=== PATIENT | female | born 1990 | race Caucasian/White ===

== ENCOUNTER 2020-02-27 14:47 | Emergency (ER) | payer OTHER ==
[2020-02-27 14:57] VITALS: TEMP 98.4
--- NOTE | 2020-02-27 15:19 | ED ---
Female Urogenital HPI - General Chief complaint: Vaginal Bleeding Stated complaint: 5 Wks Preg,Bleeding Time Seen by Provider: 02/27/20 15:00 Source: patient Mode of arrival: ambulatory Limitations: no limitations - History of Present Illness Initial comments: Patient is a 29-year-old female presenting to emergency Department with complaints of vaginal bleeding that she noticed today. Patient states she is approximately 5 weeks . She states she found out from a test at an urgent care last week. Shunt is . She does not have an OUTSIDE SALES at this time. She states she noticed some light spotting when she went to the restroom this morning, she took a nap and then when she woke up she noticed some more bleeding. She states she feels like she is passing small little clots. Her bleeding is not active, mostly when she wipes to use the restroom. She admits to some very mild intermittent right lower quadrant pain. No pain at this time however. She denies any urinary complaints. She denies any fever, chills, nausea or vomiting. She has no pertinent past medical history. She is no further complaints at this time. Upon arrival to the ER, her vitals are stable. - Related Data Allergies Allergy/AdvReac Type Severity Reaction Status Date / Time hydromorphone [From Dilaudid] Allergy Nausea & Verified 02/27/20 14:53 Vomiting Review of Systems ROS Statement: Those systems with pertinent positive or pertinent negative responses have been documented in the HPI. ROS Other: All systems not noted in ROS Statement are negative. Past Medical History Past Medical History: No Reported History History of Any Multi-Drug Resistant Organisms: None Reported Past Surgical History: No Surgical Hx Reported, Joint Replacement Additional Past Surgical History / Comment(s): B knee Past Psychological History: No Psychological Hx Reported Smoking Status: Current every day smoker Past Alcohol Use History: None Reported Past Drug Use History: Marijuana General Exam - General Exam Comments Initial Comments: GENERAL: Patient is well-developed and well-nourished. Patient is nontoxic and in no acute distress. HEAD: Atraumatic, normocephalic. EYES: Pupils equal round and reactive to light, extraocular movements intact, sclera anicteric, conjunctiva are normal. Eyelids were unremarkable. ENT: TMs normal, nares patent, oropharynx clear without exudates. Moist mucous membranes. NECK: Normal range of motion, supple without lymphadenopathy or JVD. LUNGS: Unlabored respirations. Breath sounds clear to auscultation bilaterally and equal. No wheezes rales or rhonchi. HEART: Regular rate and rhythm without murmurs, rubs or gallops. ABDOMEN: Soft, nontender, normoactive bowel sounds. No guarding, no rebound. No masses appreciated. MUSCULOSKELETAL: Normal extremities with adequate strength and normal range of motion, no pitting or edema. No clubbing or cyanosis. NEUROLOGICAL: Patient is alert and oriented x 3. Motor and sensory are also intact. Cranial nerves II through XII grossly intact. Symmetrical smile. Normal speech, normal gait. PSYCH: Normal mood, normal affect. SKIN: Warm, Dry, normal turgor, no rashes or lesions noted. Limitations: no limitations External exam: Present: normal external exam Speculum exam: Present: vaginal bleeding (mild vaginal bleeding, no active). Absent: vaginal discharge, foreign body By manual exam: Present: normal by manual exam Course Vital Signs 02/27/20 02/27/20 14:54 17:35 Temperature 98.4 F Pulse Rate 77 71 Respiratory 18 16 Rate Blood Pressure 137/92 111/74 O2 Sat by Pulse 100 97 Oximetry Medical Decision Making - Medical Decision Making Patient is a 29-year-old female here currently 5 weeks presenting with some mild vaginal bleeding and some mild suprapubic pain. Her vital signs are stable. Patient is , no OUTSIDE SALES as of yet. Patient's lab work is unremarkable, hCG Damian is 8358, urine shows no evidence of infection. Ultrasound is suspicious for an early gestational sac however no pole is identified. Probable too early to visualize IUP, spontaneous and ectopic is not included. Patient's blood type is O+. Patient is stable for discharge. I recommended having a beta hCG levels rechecked in 48 hours, I will give her OUTSIDE SALES follow-up. Return parameters were discussed with the patient she verbalized understanding. - Lab Data Result diagrams: 02/27/20 15:19 02/27/20 15:19 Lab Results 02/27/20 02/27/20 02/27/20 Range/Units 15:19 15:19 15:25 WBC 9.9 (3.8-10.6) k/uL RBC 4.80 (3.80-5.40) m/uL Hgb 14.3 (11.4-16.0) gm/dL Hct 44.5 (34.0-46.0) % MCV 92.7 (80.0-100.0) fL MCH 29.7 (25.0-35.0) pg MCHC 32.0 (31.0-37.0) g/dL RDW 12.7 (11.5-15.5) % Plt Count 272 (150-450) k/uL Neutrophils % 67 % Lymphocytes % 22 % Monocytes % 6 % Eosinophils % 2 % Basophils % 1 % Neutrophils # 6.7 (1.3-7.7) k/uL Lymphocytes # 2.2 (1.0-4.8) k/uL Monocytes # 0.6 (0-1.0) k/uL Eosinophils # 0.2 (0-0.7) k/uL Basophils # 0.1 (0-0.2) k/uL Sodium 137 (137-145) mmol/L Potassium 3.8 (3.5-5.1) mmol/L Chloride 102 (98-107) mmol/L Carbon Dioxide 24 (22-30) mmol/L Anion Gap 11 mmol/L BUN 8 (7-17) mg/dL Creatinine 0.59 (0.52-1.04) mg/dL Est GFR (CKD-EPI)AfAm >90 (>60 ml/min/1.73 sqM) Est GFR (CKD-EPI)NonAf >90 (>60 ml/min/1.73 sqM) Glucose 107 H (74-99) mg/dL Calcium 9.7 (8.4-10.2) mg/dL HCG, Quant 8358.6 mIU/mL Urine Color Urine Appearance (Clear) Urine pH (5.0-8.0) Ur Specific Rhodes (1.001-1.035) Urine Protein (Negative) Urine Glucose (UA) (Negative) Urine Ketones (Negative) Urine Blood (Negative) Urine Nitrite (Negative) Urine Bilirubin (Negative) Urine Urobilinogen (<2.0) mg/dL Ur Leukocyte Esterase (Negative) Blood Type O Positive Blood Type Recheck No Previous Record Bld Type Recheck Status ABR ONLY 02/27/20 Range/Units 15:29 WBC (3.8-10.6) k/uL RBC (3.80-5.40) m/uL Hgb (11.4-16.0) gm/dL Hct (34.0-46.0) % MCV (80.0-100.0) fL MCH (25.0-35.0) pg MCHC (31.0-37.0) g/dL RDW (11.5-15.5) % Plt Count (150-450) k/uL Neutrophils % % Lymphocytes % % Monocytes % % Eosinophils % % Basophils % % Neutrophils # (1.3-7.7) k/uL Lymphocytes # (1.0-4.8) k/uL Monocytes # (0-1.0) k/uL Eosinophils # (0-0.7) k/uL Basophils # (0-0.2) k/uL Sodium (137-145) mmol/L Potassium (3.5-5.1) mmol/L Chloride (98-107) mmol/L Carbon Dioxide (22-30) mmol/L Anion Gap mmol/L BUN (7-17) mg/dL Creatinine (0.52-1.04) mg/dL Est GFR (CKD-EPI)AfAm (>60 ml/min/1.73 sqM) Est GFR (CKD-EPI)NonAf (>60 ml/min/1.73 sqM) Glucose (74-99) mg/dL Calcium (8.4-10.2) mg/dL HCG, Quant mIU/mL Urine Color Colorless Urine Appearance Clear (Clear) Urine pH 5.5 (5.0-8.0) Ur Specific Rhodes 1.003 (1.001-1.035) Urine Protein Negative (Negative) Urine Glucose (UA) Negative (Negative) Urine Ketones Negative (Negative) Urine Blood Negative (Negative) Urine Nitrite Negative (Negative) Urine Bilirubin Negative (Negative) Urine Urobilinogen <2.0 (<2.0) mg/dL Ur Leukocyte Esterase Negative (Negative) Blood Type Blood Type Recheck Bld Type Recheck Status Disposition Clinical Impression: Threatened , Vaginal bleeding Disposition: HOME SELF-CARE Condition: Stable Instructions (If sedation given, give patient instructions): Threatened Miscarriage (ED) Additional Instructions: Please return to the Emergency Department if symptoms worsen or any other concerns. Have beta rechecked in 48 hours as discussed. Follow up with OUTSIDE SALES. Is patient prescribed a controlled substance at d/c from ED?: No Referrals: None,Stated [Primary Care Provider] - 1-2 days Leonela Lui MD [STAFF PHYSICIAN] - 1-2 days
[2020-02-27 15:40] LABS: Basophils # (A) 0.1 k/uL (0-0.2); Basophils % (A) 1 %; Eosinophils # (A) 0.2 k/uL (0-0.7); Eosinophils % (A) 2 %; HCT 44.5 % (34.0-46.0); HGB 14.3 gm/dL (11.4-16.0); Lymphocytes # (A) 2.2 k/uL (1.0-4.8); Lymphocytes % (A) 22 %; MCH 29.7 pg (25.0-35.0); MCV 92.7 fL (80.0-100.0); Mean Platelet Volume 7.5; Monocytes # (A) 0.6 k/uL (0-1.0); Monocytes % (A) 6 %; Neutrophils # (A) 6.7 k/uL (1.3-7.7); Neutrophils % (A) 67 %; Platelet Count 272 k/uL (150-450); RDW 12.7 % (11.5-15.5); WBC 9.9 k/uL (3.8-10.6)
[2020-02-27 15:41] LABS: Appearance,Urine Clear (Clear); Bilirubin,Urine Negative (Negative); Blood,Urine Negative (Negative); Color,Urine Colorless; Glucose,Urine (UA) Negative (Negative); Ketones,Urine Negative (Negative); Leukocyte Esterase,Urine Negative (Negative); Nitrite,Urine Negative (Negative); PH, Urine 5.5 (5.0-8.0); Protein,Urine Negative (Negative); Specific Gravity,Urine 1.003 (1.001-1.035); Urobilinogen,Urine <2.0 mg/dL (<2.0)
[2020-02-27 16:08] LABS: African American GFR (CKD) >90 (>60 ml/min/1.73 sqM); Anion Gap 11 mmol/L; Blood Urea Nitrogen 8 mg/dL (7-17); Calcium 9.7 mg/dL (8.4-10.2); Carbon Dioxide 24 mmol/L (22-30); Chloride 102 mmol/L (98-107); Glucose 107 mg/dL (74-99); Non-African American GFR(CKD) >90 (>60 ml/min/1.73 sqM); Potassium 3.8 mmol/L (3.5-5.1); Sodium 137 mmol/L (137-145)
[2020-02-27 16:25] LABS: HCG,Quantitative Serum 8358.6 mIU/mL
--- NOTE | 2020-02-27 16:46 | US ---
EXAMINATION TYPE: Transabdominal DATE OF EXAM: 02/27/2020 4:20 PM COMPARISON: NONE CLINICAL HISTORY: bleeding, pain, 5wks . EXAM PERFORMED: Transvaginal (TV) and Transabdominal (TA) EXAM MEASUREMENTS: GESTATIONAL AGE / DATING Physician Established: Not yet established Dates by LMP: LMP unknown Dates by First Scan: No previous this is first scan Dates by Current Scan for: (5 weeks/1 days) - by gestational sac only EDC: 10/28/2020 MATERNAL ANATOMY Uterus: 8.3 x 4.1 x 5.1 cm Right Ovary: 2.7 x 1.8 x 2.1 cm Left Ovary: 1.8 x 1.1 x 0.9 cm Post CDS / Adnexa: Tiny amount of free fluid visualized Presence of free fluid: See above Presence of corpus luteal cyst: Yes, right ovary measuring 1.9 x 1.3 x 1.8 cm Presence of subchorionic bleed: Yes, measuring 2.6 x 0.8 x 2.2 cm GESTATION / SURVEY MSD: 1.0 cm (5 weeks/1 days) Yolk Sac (normal less than 6mm): 3 mm IUP: No pole visualized on today's exam Date of LMP: Unknown Beta HcG (if available): Not available at this time Heterogeneous anteverted uterus. Endometrium is thickened up to 16 mm. There is oval 1.3 x 0.9 x 0.9 cm anechoic area with peripheral hyperechoic rim 3 mm anechoic lesion suspicious for early gestationa l sac and yolk sac. There is small to moderate size nonsimple fluid collection measuring 2.6 x 0.8 x 2.2 cm anterior or just adjacent superficial to this. No pole identified. Tiny amount of free f luid in pelvic cul-de-sac near the end of study. Both ovaries identified with scattered peripheral follicles. No suspicious extraovarian adnexal mass. Right ovary has thickened 1.8 cm rim hypervascular lesions suspicious for corpus luteal cyst. IMPRESSION: Probable too early to visualize intrauterine but spontaneous is in dif ferential and ectopic is not excluded. Serial beta hCG and ultrasound follow-up is advised.
[2020-02-27 17:36] VITALS: BP 111/74; PULSE 71; RESP 16
== END 2020-02-27 17:30 | disposition home or self-care (01) ==
LOC: EC 14:47
DX: O20.0 Threatened abortion (principal); F17.200 Nicotine dependence, unspecified, uncomplicated; Z3A.01 Less than 8 weeks gestation of pregnancy; Z88.5 Allergy status to narcotic agent; Z96.653 Presence of artificial knee joint, bilateral
CPT/HCPCS: 36415; 76801; 76817; 80048; 81003; 84702; 85025; 86900; 86901; 99284

== ENCOUNTER 2020-02-28 11:52 | Emergency (ER) | payer OTHER ==
[2020-02-28 12:04] VITALS: RESP 16
[2020-02-28 13:26] LABS: Basophils # (A) 0.1 k/uL (0-0.2); Basophils % (A) 1 %; Eosinophils # (A) 0.2 k/uL (0-0.7); Eosinophils % (A) 2 %; HCT 43.5 % (34.0-46.0); Lymphocytes # (A) 2.1 k/uL (1.0-4.8); Lymphocytes % (A) 21 %; MCH 29.3 pg (25.0-35.0); MCHC 32.2 g/dL (31.0-37.0); MCV 90.9 fL (80.0-100.0); Mean Platelet Volume 7.6; Monocytes # (A) 0.5 k/uL (0-1.0); Monocytes % (A) 5 %; Neutrophils # (A) 7.1 k/uL (1.3-7.7); Neutrophils % (A) 70 %; Platelet Count 294 k/uL (150-450); RBC 4.78 m/uL (3.80-5.40); RDW 12.6 % (11.5-15.5); WBC 10.2 k/uL (3.8-10.6)
[2020-02-28 13:44] LABS: ALT 10 U/L (4-34); AST 25 U/L (14-36); African American GFR (CKD) >90 (>60 ml/min/1.73 sqM); Albumin 4.6 g/dL (3.5-5.0); Alkaline Phosphatase 47 U/L (38-126); Anion Gap 7 mmol/L; Blood Urea Nitrogen 6 mg/dL (7-17); Calcium 9.4 mg/dL (8.4-10.2); Carbon Dioxide 24 mmol/L (22-30); Chloride 106 mmol/L (98-107); Glucose 99 mg/dL (74-99); Non-African American GFR(CKD) >90 (>60 ml/min/1.73 sqM); Potassium 4.2 mmol/L (3.5-5.1); Sodium 137 mmol/L (137-145); Total Bilirubin 0.4 mg/dL (0.2-1.3); Total Protein 7.3 g/dL (6.3-8.2)
[2020-02-28] MEDS ORDERED: ACETAMINOPHEN TAB 325 MG TAB PO STA (13:54)
[2020-02-28 13:58] LABS: HCG,Quantitative Serum 4295.3 mIU/mL
--- NOTE | 2020-02-28 14:09 | ED ---
Female Urogenital HPI - General Chief complaint: Vaginal Bleeding Stated complaint: 5 Wks Preg, Bleeding Time Seen by Provider: 02/28/20 12:08 Source: patient Mode of arrival: ambulatory Limitations: no limitations - History of Present Illness Initial comments: 29-year-old female presented for possible miscarriage. Patient states she was here yesterday and evaluated she states she is to see OB and have a repeat hCG done in 2 days. Patient states she was not sure of cramping was normal she states she feels like she is having a. She is midline crampy abdominal pain she denies any unilateral abdominal pain. She states she is moderate bleeding with some small clots. Patient denies any lightheadedness dizziness or presyncope. Patient denies any vomiting nausea or additional complaints she denies severe pain she states is tolerable. Remaining review of systems negative upon arrival patient appears well nontoxic distress. Blood pressure and heart rate within acceptable limits - Related Data Home Medications Medication Instructions Recorded Confirmed No Known Home Medications 02/28/20 02/28/20 Allergies Allergy/AdvReac Type Severity Reaction Status Date / Time hydromorphone [From Dilaudid] AdvReac Nausea & Verified 02/28/20 14:06 Vomiting Review of Systems ROS Statement: Those systems with pertinent positive or pertinent negative responses have been documented in the HPI. ROS Other: All systems not noted in ROS Statement are negative. Past Medical History Past Medical History: No Reported History History of Any Multi-Drug Resistant Organisms: None Reported Past Surgical History: No Surgical Hx Reported, Joint Replacement Additional Past Surgical History / Comment(s): B knee Past Psychological History: No Psychological Hx Reported Smoking Status: Former smoker Past Alcohol Use History: None Reported Past Drug Use History: Marijuana General Exam - General Exam Comments Initial Comments: General: The patient is awake and alert, in no distress, and does not appear acutely ill. Eye: +3 mm pupils are equal, round and reactive to light, extra-ocular movements are intact. No nystagmus. There is normal conjunctiva bilaterally. No signs of icterus. Ears, nose, mouth and throat: There are moist mucous membranes and no oral lesions. Neck: The neck is supple, there is no tenderness or JVD. Cardiovascular: There is a regular rate and rhythm. No murmur, rub or gallop is appreciated. Respiratory: Lungs are clear to auscultation, respirations are non-labored, breath sounds are equal. No wheezes, stridor, rales, or rhonchi. Gastrointestinal: non-distended, non-tender abdomen without masses or organomegaly noted. There is no rebound or guarding present. : No adnexal tenderness, or cervical motion tendenress, moderate amount of blood on vault, which was cleared. with no rapid return. No products stuck in cervical os which is open. Musculoskeletal: Normal ROM, no tenderness. Strength 5/5. Sensation intact. Pulses equal bilaterally 2+. Neurological: A&O x 3. CN II-XII intact grossly, There are no obvious motor or sensory deficits. Coordination appears grossly intact. Speech is normal. Skin: Skin is warm and dry and no rashes or lesions are noted. Psychiatric: Cooperative, appropriate mood & affect, normal judgment. Limitations: no limitations Course Vital Signs 02/28/20 02/28/20 12:01 14:25 Temperature 98.7 F 97.6 F Pulse Rate 81 83 Respiratory 16 16 Rate Blood Pressure 124/82 113/62 O2 Sat by Pulse 98 98 Oximetry Medical Decision Making - Medical Decision Making 29yo female presenting for cc of cramping. Midline, no unilateral. NO adnexal tenderness on exam. Bleeding moderate. Patient does not appear in distress. VS and HgB stable. Patient HCG decreased ~ 50%. No increase. Feel this is most likely miscarriage. Patient US reviewed from yesterday no suspicious adnexal lesions. Patient is agreeable to discharge with OBGYN f/u in next week. Return for lightheadedness of increase in bleeding. Patient case discussed iwth Dr. Perdomo who is agreeable to care plan and discharge. - Lab Data Result diagrams: 02/28/20 13:06 02/28/20 13:06 Lab Results 02/28/20 02/28/20 Range/Units 13:06 13:06 WBC 10.2 (3.8-10.6) k/uL RBC 4.78 (3.80-5.40) m/uL Hgb 14.0 (11.4-16.0) gm/dL Hct 43.5 (34.0-46.0) % MCV 90.9 (80.0-100.0) fL MCH 29.3 (25.0-35.0) pg MCHC 32.2 (31.0-37.0) g/dL RDW 12.6 (11.5-15.5) % Plt Count 294 (150-450) k/uL Neutrophils % 70 % Lymphocytes % 21 % Monocytes % 5 % Eosinophils % 2 % Basophils % 1 % Neutrophils # 7.1 (1.3-7.7) k/uL Lymphocytes # 2.1 (1.0-4.8) k/uL Monocytes # 0.5 (0-1.0) k/uL Eosinophils # 0.2 (0-0.7) k/uL Basophils # 0.1 (0-0.2) k/uL Sodium 137 (137-145) mmol/L Potassium 4.2 (3.5-5.1) mmol/L Chloride 106 (98-107) mmol/L Carbon Dioxide 24 (22-30) mmol/L Anion Gap 7 mmol/L BUN 6 L (7-17) mg/dL Creatinine 0.56 (0.52-1.04) mg/dL Est GFR (CKD-EPI)AfAm >90 (>60 ml/min/1.73 sqM) Est GFR (CKD-EPI)NonAf >90 (>60 ml/min/1.73 sqM) Glucose 99 (74-99) mg/dL Calcium 9.4 (8.4-10.2) mg/dL Total Bilirubin 0.4 (0.2-1.3) mg/dL AST 25 (14-36) U/L ALT 10 (4-34) U/L Alkaline Phosphatase 47 (38-126) U/L Total Protein 7.3 (6.3-8.2) g/dL Albumin 4.6 (3.5-5.0) g/dL HCG, Quant 4295.3 mIU/mL Disposition Clinical Impression: Threatened , Vaginal bleeding in Disposition: HOME SELF-CARE Condition: Good Instructions (If sedation given, give patient instructions): Threatened Miscarriage (ED) Additional Instructions: Please use medication as discussed. Please follow-up with OBGYN in the next 2 days. Please return to emergency room if the symptoms increase or worsen or for any other concerns. Is patient prescribed a controlled substance at d/c from ED?: No Referrals: None,Stated [Primary Care Provider] - 1-2 days Rhiannon Oconnor MD [STAFF PHYSICIAN] - 1-2 days Time of Disposition: 14:09
[2020-02-28 14:43] VITALS: BP 113/62; PULSE 83; TEMP 97.6
== END 2020-02-28 14:25 | disposition home or self-care (01) ==
LOC: EC 11:52
DX: O20.0 Threatened abortion (principal); Z88.5 Allergy status to narcotic agent; Z3A.01 Less than 8 weeks gestation of pregnancy; Z87.891 Personal history of nicotine dependence
CPT/HCPCS: 36415; 80053; 84702; 85025; 99284

== ENCOUNTER → 2020-02-28 | Outpatient (CLI) | payer SELFPAY ==
--- NOTE | 2020-02-28 12:01 | CT ---
EXAMINATION TYPE: CT wrist RT wo con DATE OF EXAM: 02/28/2020 COMPARISON: None. HISTORY: Rt wrist pain, post fall off skateboard. Displaced fracture ulnar styloid. Intra-articular f racture distal radius. CT DLP: 104.2 mGycm Automated exposure control for dose reduction was used. FINDINGS: There is overlying fiberglass cast material. There is confirmation of displaced avulsion type fracture from ulnar styloid with 3 mm ossific fragme nt having roughly 3 mm distal distraction. There is acute comminuted minimally displaced intra-articular fracture through the dorsal one half of the distal radial meta-epiphysis. No significant step off in the radial articulation with scaphoid a nd lunate bones is present. On axial images there is dorsal displacement of the distal ulna relative to the distal radius. Carpal joint spaces are maintained. No additional fracture is seen. Muscle bulk is preserved. IMPRESSION: CONFIRMATION OF SLIGHTLY DISTRACTED AVULSION TYPE FRACTURE FROM ULNAR STYLOID. CONFIRMATION OF ACUTE COMMINUTED MINIMALLY DISPLACED INTRA-ARTICULAR FRACTURE OF DISTAL RADIAL META-EPIPHYSIS. THERE IS ASS OCIATED DISTAL RADIOULNAR JOINT DISLOCATION NOTED.
== END | disposition home or self-care (01) ==
LOC: RADCTMAIN 11:11
PROVIDERS: ATTEND Orthopaedic Surgery
DX: S52.611A Displaced fracture of right ulna styloid process, initial encounter for closed fracture (principal); S52.571A Other intraarticular fracture of lower end of right radius, initial encounter for closed fracture

== ENCOUNTER 2021-08-07 19:36 | Emergency (ER) | payer BC, OTHER ==
[2021-08-07 20:13] VITALS: BP 148/87; PULSE 87; RESP 16; TEMP 98.3
[2021-08-07] MEDS ORDERED: SULFAMETHOX-TMP 800-160MG 1 EACH TAB PO STA (23:41)
[2021-08-07] MEDS ORDERED: SULFAMETH-TMP DS STARTER PACK 2 TAB BTL PO STA (23:41)
--- NOTE | 2021-08-07 23:44 | ED ---
Upper Extremity HPI - General Chief Complaint: Extremity Injury, Upper Stated Complaint: Fall-L hand sore Time Seen by Provider: 08/07/21 23:22 Source: patient, RN notes reviewed, old records reviewed Mode of arrival: ambulatory Limitations: no limitations - History of Present Illness Initial Comments: This is a 30-year-old female DF for evaluation. Patient states she was beach and fell landing on a chair with her left hand. She had most of the barbs out but there was one that was still impacted. It has been there since. She has some significant muscle pain in the area some joint pain in the area of her left hand ulnar aspect. Patient has no other issues. No streaking or redness no fevers. Patient did have x-ray urgent care showing foreign body 5 mm. Patient here for follow-up with hand surgeon. MD Complaint: Injury to:: left, hand -: week(s) (3) Other Extremity Injury: Hand: Left Other Injuries: none Handedness: right Place: outdoors Severity scale (1-10): 2 Improves With: none Context: other (Penetration injury) Associated Symptoms: denies other symptoms - Related Data Previous Rx's Medication Instructions Recorded Sulfamethox-Tmp 800-160Mg [Bactrim 1 tab PO Q12HR #20 tab 08/07/21 DS 800-160 mg] Allergies Allergy/AdvReac Type Severity Reaction Status Date / Time hydromorphone [From Dilaudid] AdvReac Nausea & Verified 08/07/21 20:09 Vomiting Review of Systems ROS Statement: Those systems with pertinent positive or pertinent negative responses have been documented in the HPI. ROS Other: All systems not noted in ROS Statement are negative. Past Medical History Past Medical History: No Reported History History of Any Multi-Drug Resistant Organisms: None Reported Past Surgical History: No Surgical Hx Reported, Joint Replacement Additional Past Surgical History / Comment(s): B knee Past Psychological History: No Psychological Hx Reported Smoking Status: Former smoker Past Alcohol Use History: None Reported Past Drug Use History: Marijuana General Exam Limitations: no limitations General appearance: alert, in no apparent distress Head exam: Present: atraumatic, normocephalic, normal inspection Eye exam: Present: normal appearance, PERRL, EOMI. Absent: scleral icterus, co njunctival injection, periorbital swelling ENT exam: Present: normal exam, mucous membranes moist Neck exam: Present: normal inspection. Absent: tenderness, meningismus, lymphadenopathy Respiratory exam: Present: normal lung sounds bilaterally. Absent: respiratory distress, wheezes, rales, rhonchi, stridor Cardiovascular Exam: Present: regular rate, normal rhythm, normal heart sounds. Absent: systolic murmur, diastolic murmur, rubs, gallop, clicks GI/Abdominal exam: Present: soft, normal bowel sounds. Absent: distended, tenderness, guarding, rebound, rigid Extremities exam: Present: normal inspection, full ROM, tenderness (Left ulnar aspect of hand does have area of puncture with tenderness), normal capillary refill. Absent: pedal edema, joint swelling, calf tenderness Back exam: Present: normal inspection Neurological exam: Present: alert, oriented X3, CN II-XII intact Psychiatric exam: Present: normal affect, normal mood Skin exam: Present: warm, dry, intact, normal color. Absent: rash Course Vital Signs 08/07/21 20:09 Temperature 98.3 F Pulse Rate 87 Respiratory 16 Rate Blood Pressure 148/87 O2 Sat by Pulse 97 Oximetry - Reevaluation(s) Reevaluation #1: 08/07/21 23:42 Medical record is reviewed Reevaluation #2: 08/07/21 23:42 Patient given follow-up for foreign body removal Reevaluation #3: 08/07/21 23:42 Patient given antibiotics for possible infection and that has been draining Reevaluation #4: 08/07/21 23:42 Patient informed results questions answered Medical Decision Making - Medical Decision Making 30 female with severe chest and spine and left hand. Patient at this time prefers removal by hand surgeon. Patient given a follow-up for hand surgery care, gallbladder removal. Patient can be discharged home Disposition Clinical Impression: Foreign body of left hand Disposition: HOME SELF-CARE Condition: Good Instructions (If sedation given, give patient instructions): Soft Tissue Foreign Body (ED) Is patient prescribed a controlled substance at d/c from ED?: No Referrals: None,Stated [Primary Care Provider] - 1-2 days
--- NOTE | 2021-08-07 23:45 | ED ---
Medical Decision Making - Medical Decision Making Addendum to give proper follow-up information Disposition Clinical Impression: Foreign body of left hand Disposition: HOME SELF-CARE Condition: Good Instructions (If sedation given, give patient instructions): Soft Tissue Foreign Body (ED) Prescriptions: Sulfamethox-Tmp 800-160Mg [Bactrim DS 800-160 mg] 1 tab PO Q12HR #20 tab Is patient prescribed a controlled substance at d/c from ED?: No Referrals: Jenna Freeman DO [Doctor of Osteopathic Medicine] - 1-2 days
== END 2021-08-07 23:58 | disposition home or self-care (01) ==
LOC: EC 19:36
DX: S60.552A Superficial foreign body of left hand, initial encounter (principal); Z87.891 Personal history of nicotine dependence; Z88.5 Allergy status to narcotic agent; W19.XXXA Unspecified fall, initial encounter
CPT/HCPCS: 99282

== ENCOUNTER → 2024-11-27 | Outpatient (CLI) | payer OTHER ==
--- NOTE | 2024-11-27 11:55 | XR ---
EXAMINATION TYPE: XR abdomen 2V DATE OF EXAM: 11/27/2024 10:37 AM COMPARISON: None. CLINICAL INDICATION: Female, 34 years old with history of R10.9 UNSPECIFIED ABDOMINAL PAIN, TECHNIQUE: XR abdomen 2V view(s) obtained. FINDINGS: There is a normal bowel gas pattern. Psoas margins are normal. No organomegaly is present. IMPRESSION: 1. Unremarkable [facility]en [facility], , 11/27/2024 11:53 AM
== END | disposition home or self-care (01) ==
LOC: RADXRMAIN 10:20
PROVIDERS: ATTEND Internal Medicine Gastroenterology
DX: R10.9 Unspecified abdominal pain (principal)
CPT/HCPCS: 74019